=== PATIENT | female | born 2000 | race Caucasian/White ===

== ENCOUNTER → 2022-10-14 | Outpatient (CLI) | payer OTHER, SELFPAY ==
[2022-10-20 11:08] LABS: HPV APTIMA, High Risk Negative (Negative)
== END | disposition home or self-care (01) ==
PROVIDERS: Visit Provider Student in an Organized Health Care Education/Training Program
DX: Z01.419 Encounter for gynecological examination (general) (routine) without abnormal findings (principal)
CPT/HCPCS: 87624; 88175; G0145

== ENCOUNTER → 2022-10-28 | Outpatient (CLI) | payer OTHER, SELFPAY ==
--- NOTE | 2022-10-28 13:17 | US_ITS ---
EXAM: Diagnostic unilateral left breast ultrasound. REASON FOR EXAM: Female, 22 years old. Palpable lump PERTINENT HISTORY: No personal or family history of breast cancer reported. TECHNIQUE: Real-time fulton scale and color sonographic images were obtained of the left lower inner breast at the 8:00 position in the clinical area of palpable concern COMPARISON: None. FINDINGS: Ultrasound findings: There is a 2.4 x 2.9 x 1.3 cm hypoechoic mass at the 8:00 position, approximately 3 cm posterior to the nipple, and corresponding to area of palpable concern. This mass demonstrates macrolobulated borders, posterior acoustic enhancement, large central macrocalcification, and some internal vascularity. There is no posterior shadowing or change in shape with compression. US/Breast Limited Unilateral IMPRESSION: 2.4 x 2.9 x 1.3 cm hypoechoic mass at the 8:00 position corresponds to the area of palpable concern. In a 22-year-old female, this favors appearance of a benign fibroadenoma. However, given size of the mass, close surveillance imaging is recommended with initial follow-up ultrasounds in 3 months and 6 months from today''s examination to monitor regression or stability. Biopsy may be considered if interval enlargement in size. ASSESSMENT CATEGORY: BIRADS Category 3: Probably Benign - Short-Interval Follow-up Suggested. A letter regarding these results will be sent to the patient by the facility within 30 days. RECOMMENDATION: Recommendations as detailed in the impression above. Approximately 10% of breast cancers are not detected by mammography. A normal mammogram should not delay biopsy of a clinically suspicious abnormality. Electronically Signed: Yung Nicole DO at 15:48 EDT ,
== END | disposition home or self-care (01) ==
LOC: OPBI 13:14
PROVIDERS: PCP Nurse Practitioner Family; Referring Provider Student in an Organized Health Care Education/Training Program; Visit Provider Student in an Organized Health Care Education/Training Program
DX: N63.20 Unspecified lump in the left breast, unspecified quadrant (principal)
CPT/HCPCS: 76642

== ENCOUNTER 2023-04-22 14:14 | Emergency (ER) | payer OTHER, SELFPAY ==
[2023-04-22 14:15] VITALS: BP 126/73; PULSE 100; RESP 18; TEMP 36.1; O2SAT 100
--- NOTE | 2023-04-22 15:04 | ED.VIS.FEGU ---
HPI HPI - Female History of Present Illness Chief Complaint: Vag Bleeding Detail of Chief Complaint: Vaginal bleeding that started yesterday and got worse today Informant: patient Pain Pain: Positive for Pelvic Pain and Vaginal Pain Onset: Today Context: Sudden Onset Timing: Continuous and Waxes and wanes Quality: Positive for Cramping Location: Suprapubic Current Severity: Mild Maximum Severity: Moderate Worsened by: - (Nothing) Relieved by: - (Nothing) Bleeding Issue: Positive for Vaginal bleeding; Negative for Passing clots or Passing tissue Onset: Yesterday Current pads/hr: 2 Maximum Severity: Heavy Maximum pads/hr: 2 Associated Symptoms Associated Symptoms: Negative for Dysuria, Frequency, Urgency, Hematuria, Missed Period or Irregular Period Last known menstrual period: Beginning of last month. Sexually: Positive for Active Control: No control Narrative Narrative: Patient is a 22-year-old female who presents with vaginal bleeding that started yesterday. Became heavy today and is using 2 tampons per hour. She is not noted any tissue or clots. She does endorse lightheadedness. She denies shoulder pain in supine position. She denies history of STI. She denies history of . Patient denies fever, chills night sweats. She denies chest pain, dyspnea or dyspnea on exertion. She does report lumbar abdominal pain suprapubic pelvic area. Described as colicky pain. Prior similar symptoms: No Recent Illness/Hospitalization: No PFSH PFSH Medical History no medical history no medical history Home Medications desogestrel 0.15 mg-ethinyl estradiol 0.03 mg tablet 2 tab PO DAILY #28 tabs 04/22/23 [Rx Last Taken Unknown] ondansetron 4 mg disintegrating tablet 4 mg PO Q8H PRN PRN Nausea #10 tabs 04/22/23 [Rx Last Taken Unknown] Allergy/AdvReac Type Severity Reaction Status Date / Time tramadol AdvReac Severe SYNCOPE Verified 04/22/23 14:15 Surgical History no surgical history no surgical history Social History (Updated 04/22/23 @ 15:[address] Ramirez Dacosta MD) Smoking Status: Never smoker substance use type: does not use ROS ROS ED Constitutional Constitutional ED: Denies chills, fever(s) or subjective Eyes Eyes: Denies blurry vision, change in vision or diplopia ENT ENT ED: Denies ear pain, rhinorrhea or sore throat Cardiovascular Cardiovascular: Reports other Details: Positive orthostatic symptoms. ; Denies chest pain, orthopnea, palpitations, paroxysmal nocturnal dyspnea or racing heartbeat Respiratory/Chest Respiratory/Chest: Denies cough, dyspnea, dyspnea on exertion, orthopnea, paroxysmal nocturnal dyspnea or sputum Gastrointestinal Gastrointestinal: Reports abdominal pain and nausea; Denies constipation, diarrhea, melena or vomiting Genitourinary Genitourinary ED: Denies dysuria, hematuria or urinary frequency Musculoskeletal Musculoskeletal: Denies arthralgias, myalgias or neck pain Integumentary Denies rash Psychiatric Psychiatric: Reports anxiety Endocrine Endocrinology: Denies heat intolerance or polydipsia EXAM Physical Exam Const Vital Signs: 04/22/23 14:15 Temperature 97 F L Temperature Source Temporal Pulse Rate 100 Respiratory Rate 18 Blood Pressure 126/73 H Blood Pressure Mean 90 Pulse Ox 100 Oxygen Delivery Method Room Air Positive well nourished and well developed General Appearance ED: well developed and NAD; Negative for odor of alcohol detected HEENT Reports moist mucous membranes HEENT Narrative: Head is atraumatic and normocephalic. Ears are normal. Eyes PERRL and EOMs intact bilaterally General Eye ED: Negative for pale conjunctiva or scleral icterus Neck no lymphadenopathy, supple and no JVD Chest Wall inspection of chest normal and palpation of chest normal Resp normal respiratory effort and clear to auscultation bilaterally Cardio regular rate, regular rhythm, S1 normal heart sound, no murmurs and no JVD GI normal to inspection, nondistended, normoactive bowel sounds, soft to palpation and non-distended; Negative for non-tender GI Narrative: Patient did complain of upper abdominal pain with mild to moderate pressure. Palpation: tender suprapubic; Negative for guarding, rigid, hepatomegaly or splenomegaly Narrative: External genitalia normal. Tampon is saturated. There is blood in the vaginal vault with small clots. There is blood came from the os. Patient has an irregular shaped cervix and is not consistent with someone who is never been . This raises concern that this may represent a miscarriage. Patient had discomfort on bimanual exam. Uterus does not appear to be enlarged. There is no adnexal pain or mass. She did have discomfort with pressure against the bladder. Back/Spine no CVA tenderness Extremity normal to inspection Neuro oriented x3, CN's II-XII intact bilaterally and no sensory deficits noted Sensorium / Orientation: alert Motor Exam: strength 5/5 throughout Psych mental status grossly normal Skin no rashes or lesions noted and no wounds MDM MDM MDM Narrative Medical decision making narrative: Patient presents with significant vaginal bleeding need to rule out . If patient is we will need to obtain ultrasound to assess for retained products of conception. CBC was obtained to assess H&H and platelet count. Patient was made NPO. Lab Data Labs: Laboratory Results - last 24 hr 04/22/23 14:50 WBC 6.7 RBC 4.52 Hgb 12.9 Hct 39.8 MCV 88.1 MCH 28.5 MCHC 32.4 RDW Std Deviation 42.5 RDW Coeff of Adria 13.2 Plt Count 274 MPV 9.4 Serum , Qual NEGATIVE Blood Type A NEGATIVE Management Discussion w/another healthcare provider: Wire Insulator (Spoke with Dr. Otto Reyes. Recommended Mircette 2 tablets a day and follow-up with Dr. Cinda Abraham) Treatment and Re-Evaluation Narrative: H&H is normal. Serum test is negative. Patient has a negative blood. Because of the amount of bleeding will contact Dr. Otto Reyes who is on-call for CLERK OPERATOR with no doc. Will discuss use of Methergine etc. for her heavy bleeding Discharge Plan Triage Chief Complaint: Vag Bleeding ED Provider: Ramirez Dacosta Dx/Rx/DC Orders Clinical Impression: Abnormal vaginal bleeding, Orthostatic dizziness Instructions: ED Dysfunctional Uterine Bleeding Prescriptions: New desogestrel-ethinyl estradiol 0.15-0.03 mg tablet 2 tab PO DAILY Qty: 28 0RF ondansetron [ondansetron] 4 mg tablet,disintegrating 4 mg PO Q8H PRN PRN (Reason: Nausea) Qty: 10 0RF Primary Care Provider: Marisela Ray NP Referrals: Cinda Abraham MD [Med Staff - Active Staff] - 1 Week Marisela Ray NP, FOOD SERVICE UTILITY WORKER-C [Primary Care Provider] - Disposition Disposition: Home, Self Care
[2023-04-22 15:47] LABS: Internal QC Validated? YES +Cl - CLEAR BKGD; Pregnancy, Serum, hCG Quali. NEGATIVE Negative
[2023-04-22 15:49] LABS: Hematocrit 39.8 % (37-47); Hemoglobin 12.9 g/dL (12.0-15.0); Mean Corp Hgb Conc 32.4 g/dL (32-36); Mean Corpuscular Hgb 28.5 pg (27.0-32.0); Mean Corpuscular Volume 88.1 fL (81-99); Mean Platelet Vol. 9.4 fl (6.2-12.0); Platelet Count 274 K/mm3 (150-450); RBC Distribution Width CV 13.2 % (11.6-14.6); RBC Distribution Width SD 42.5 fl (35.1-43.9); Red Blood Count 4.52 M/mm3 (4.2-5.4); White Blood Count 6.7 K/mm3 (4.4-11.0)
[2023-04-22 16:11] VITALS: BP 118/77; PULSE 87; RESP 18; TEMP 36.1; O2SAT 100
--- OUTSIDE RECORDS SUMMARY | 2023-04-22 20:16 | XMS RPT_ITS | CCD ---
Author Name Unknown Address [address] [place] [address] Organization [facility] Care Team Providers Care Combination Technician Name Role Phone NONE, NONE Primary Care Unavailable POORMAN CNM, ROLY M Consulting Unavailabl e POORMAN CNM, ROLY M Admitting Unavailabl e POORMAN CNM, ROLY M Attending Unavailabl e NONE, NONE Consulting Unavailable POORMAN CNM, ROLY Wood Attending Unavailabl e NONE, NONE Primary Care Unavailable POORMAN CNM, ROLY M Consulting Unavailabl e POORMAN CNM, ROLY Wood Admitting Unavailabl e NONE, NONE Consulting Unavailable POORMAN CNM, ROLY Wood Consulting Unavailabl e POORMAN CNM, ROLY Wood Admitting Unavailabl e POORMAN CNM, ROLY Wood Attending Unavailabl e NONE, NONE Primary Care Unavailable NONE, NONE Consulting Unavailable POORMAN CNM, ROLY M Attending Unavailabl e NONE, NONE Primary Care Unavailable POORMAN CNM, ROLY M Consulting Unavailabl e POORMAN CNM, ROLY Wood Admitting Unavailabl e NONE, NONE Primary Care Unavailable SHALINI [id number], ANNE-MARIE Arreola Consulting Unavailable DM DO, NEVILLE L Attending Unavailable DM DO, NEVILLE L Admitting Unavailable DM DO, NEVILLE L Consulting Unavailable NONE, NONE Consulting Unavailable NONE, NONE Primary Care Unavailable THAIIE [id number], ANNE-MARIE Arreola Consulting Unavailable DM DO, NEVILLE L Admitting Unavailable DM DO, NEVILLE L Attending Unavailable DM DO, NEVILLE L Consulting Unavailable NONE, NONE Consulting Unavailable POORMAN CNM, ROLY M Attending Unavailabl e NONE, NONE Primary Care Unavailable ELSA [phone] Consulting Unavailable POORMAN CNM, ROLY Wood Admitting Unavailabl e POORMAN CNM, ROLY Wood Consulting Unavailabl e NONE, NONE Consulting Unavailable NONE, NONE Primary Care Unavailable SELIN PORTILLO Consulting Unavailable POORMAN CNM, ROLY M Admitting Unavailshane e ROLY BELCHER CNM Attending Unavailshane e ROLY BELCHER CNM Consulting Unavailshane e NONE, NONE Consulting Unavailable EB ADHIKARI CNP Referring Unavailable EB ADHIKARI CNP Consulting Unavailable KELLY DALE Attending Unavailable KELLY DALE Primary Care Unavailable KELLY DALE Admitting Unavailable PROVIDER, UNKNOWN Consulting Unavailable PROVIDER, UNKNOWN Consulting Unavailable Problems Active Problems Problem Classification Problem Date Documented Date Episodic/Chronic Contraceptive and procreative management (1 source) Presence of (intrauterine) contraceptive device; Translations: [PRESENCE IU CONTRACEPT DEVICE] Onset: 01-12-2022 Episodic Immunizations and screening for infectious disease (3 sources) Encounter for screening for infections with a predominantly sexual mode of transmission; Translations: [ENC SCREEN INFECTIONS SEXL TRANSMS] Onset: 12-31-2021 Episodic Other and unspecified benign neoplasm (3 sources) Benign neoplasm of left breast; Translations: [BENIGN NEOPLASM OF LEFT BREAST] Onset: 05-06-2021 Episodic Other female genital disorders (2 sources) Abnormal uterine and vaginal bleeding, unspecified; Translations: [ABNORMAL UTERINE VAGINAL BLEED UNS] Onset: 01-06-2022 Chronic Ovarian cyst (2 sources) Follicular cyst of left ovary; Translations: [Follicular cyst of right ovary] Onset: 01-12-2022 Episodic Unclassified (2 sources) Unspecified lump in the left breast, overlapping quadrants; Translations: [UNS LUMP LT BREAST OVRLPNG QUADRNTS] Onset: 11-27-2021 Past or Other Problems Problem Classification Problem Date Documented Da te Episodic/Chronic Nonmalignant breast conditions (1 source) Unspecified lump in the left breast, lower inner quadrant; Translations: [UNS LUMP IN LT BREAST LW INNER QUAD] Onset: 04-16-2021 Episodic Results Test Name Value Interpretation Reference Range Facil ity Encounters Encounter Date Encounter Type Care Provider Facility Start: 01-23-2023 End: 01-23[facility]2023 [facility] Start: 01-06-2022 End: 01-07-2022 ambulatory ROLY BELCHER CNM Facility:[facility] Start: 12-31-2021 End: 01-01-2022 ambulatory ROLY BELCHER CNM Facility:[facility] Start: 11-27-2021 End: 11-28-2021 ambulatory NONE NONE Facility:[facility] Start: 10-07-2021 End: 10-08-2021 ambulatory NONE NONE Facility:[facility] Start: 05-06-2021 End: 05-07-2021 ambulatory NONE NONE Facility:[facility] Start: 04-15-2021 End: 04-16-2021 ambulatory NONE NONE Facility:[facility] Start: 04-03-2021 End: 04-03-2021 ambulatory ROLY Israel MARIE Facility:[facility] Procedures Date Procedure Procedure Detail Performing Clinician Start: 01-23-2023 Urinalysis EB Keyes YLER Payers Date Payer Category Payer Unknown [id number] [id number] 2001 Unknown [id number] [id number] [id number] 2001 Unknown [id number] 2.16.8 [id number] 2001 Unknown [id number] 2.16.8 [id number] 2001 Unknown [id number] 2.16.8 [id number] 2001 Unknown [id number] 2.16.8 [id number] 2001 Unknown [id number] 2.16.8 [id number] 2001 Unknown [id number] 2.16.8 [id number] 2001 Unknown [id number] 2.16.8 [id number] 1959 Unknown [id number] Clinical Note 01-06-2022 Note Date & Type Note Facility 01-06-2022 Note PROCEDURE: ULTRASOUN D TRANSVAGINAL NON OB, 01/06/2022 4:46 PM EDT CLINICAL INDICATIONS: Abnormal uterine bleeding unrelated to menstrual cycle, intrauterine device placed April 2021, symptoms for 3 weeks with severe cramping 0 COMPARISON: None TECHNIQUE: Transvaginal pelvic sonogram, grayscale, color evaluation. FINDINGS: Uterus: 8.1 x 3.9 x 3.2 cm. Intrauterine device is adequately positioned within the endometrial cavity. Endotracheal echo complex is estimated at 0.8 cm. Normal uterine sonographic morphology is seen. There is nonspecific fluid in the endocervical canal. Focal abnormality is not evident. Right ovary: 2.9 x 2.5 x 2.3 cm, volume 9 mL. Increased number of follicles are identified approaching 25 in number. Measuring up to 1.8 x 0.7 x 1.0 cm. Left ovary: 3.8 x 2.8 x 2.7 cm, volume 15 mL. Dominant follicle 2.2 x 2.0 x 2.4 cm. Exophytic ovarian or paraovarian cyst measures up to 0.7 x 0.7 x 0.6 cm. DUPLEX PELVIC VASCULATURE: There is intact flow within the ovarian tissue bilaterally by color-flow assessment. Arterial spectral tracing is identified from within. Right resistive index 0.59, left 0.52. No significant free fluid. IMPRESSION: 1. Intrauterine device within the endometrial cavity. 2. Normal uterine sonographic morphology 3. Enlarged ovarian volume, increased number of ovarian follicles on the right. Dominant right follicle 1.8 cm, dominant left 2.4 cm. Polycystic ovarian morphology is a consideration in the appropriate clinical setting. [facility] Summary Purpose Family History No Family History Records FoundNo Family History Records FoundNo Family History Records Found Advance Directives No Advanced Directives Records FoundNo Advanced Directives Records FoundNo Advanced Directives Records Found Additional Source Comments INFORMATION SOURCE (unrecogn ized section and content) DATE CREATED AUTHOR AUTHOR'S ORGANIZ ATION 01/13/2022 [facility] DATE CREATED AUTHOR AUTHOR'S ORGANIZ ATION 02/13/2023 [facility] FOR RECORDS PERTAINING TO PATIENTS WHO ARE OR HAVE BEEN ENROLLED IN A CHEMICAL DEPENDENCY/SUBSTANCEABUSE PROGRAM, SOME INFORMATION MAY BE OMITTED. This clinical summary was aggregated from multiple sources. Caution should be exercised in using it in the provision of clinical care. This summary normalizes information from multiple sources, and as a consequence, information in this document may materially change the coding, format and clinical context of patient data. In addition, data may be omitted in some cases. CLINICAL DECISIONS SHOULD BE BASED ON THE PRIMARY CLINICAL RECORDS. [employer] [facility]. provides no warranty or guarantee of the accuracy or completeness of information in this document.
== END 2023-04-22 16:12 | disposition home or self-care (01) ==
PROVIDERS: Emergency Provider Emergency Medicine; PCP Nurse Practitioner Family; Visit Provider Emergency Medicine
DX: N93.9 Abnormal uterine and vaginal bleeding, unspecified (principal); R42 Dizziness and giddiness; R10.9 Unspecified abdominal pain; R11.0 Nausea; F41.9 Anxiety disorder, unspecified
CPT/HCPCS: 84703; 85027; 86900; 86901; 99283; A4216